=== PATIENT | female | born 1995 | race African-American/Black ===

== ENCOUNTER 2024-05-09 21:09 | Emergency (ER) | payer OTHER, MEDICAID, SELFPAY ==
[2024-05-09 21:29] VITALS: BP 109/79; PULSE 96; RESP 15; TEMP 36.6; O2SAT 99; BMI 18.3
--- NOTE | 2024-05-09 21:52 | ED.RECABL ---
HPI - Recheck/Abnormal Lab/Rx General Chief Complaint: Recheck/Abnormal Lab/Rx Stated Complaint: medication shot is broken, needs hlep Time Seen by Provider: 05/09/24 21:25 Source: patient Mode of arrival: Family Vehicle History of Present Illness HPI narrative: 29-year-old female with history of rheumatoid arthritis on Humira presents for generalized pain. Patient states that she was due for her Humira shot today, however the injector pens that she had at home broke, with a needle breaking off. She reports pain all over her body consistent with rheumatoid arthritis. She was hoping that the medication taken today would take effect for tomorrow, but since her inject her pins have broken and tomorrow as a Federal holiday she decided to present to the ER for help. Did not take any medications at home prior to arrival. Related Data Allergies Allergy/AdvReac Type Severity Reaction Status Date / Time sertraline [From Zoloft] AdvReac Anxiety Verified 05/09/24 21:35 Patient History Social History Smoking Status: Never smoker Smoking Status: Never smoker alcohol intake frequency: 0-2 drinks per day Substance Use Type: marijuana Exam Initial Vital Signs Initial Vital Signs: Vital Signs Temperature 97.9 F 05/09/24 21:29 Pulse Rate 96 H 05/09/24 21:29 Respiratory Rate 15 05/09/24 21:29 Blood Pressure 109/79 05/09/24 21:29 Pulse Oximetry 99 05/09/24 21:29 Oxygen Delivery Method Room Air 05/09/24 21:29 Const: Awake, alert, no acute distress, nontoxic appearing Cardiac: regular rate, regular rhythm RESP: unlabored, speaking in complete sentences without dyspnea MSK: Atraumatic, full range of motion, pulses equal Skin: Warm, Dry, intact, no rashes Neuro: AO x3, CN II-XII grossly intact, moves all extremities Course Orders Ordered: Discontinued Medications Dexamethasone (Dexamethasone 10 Mg/Ml Vial) 10 mg IV NOW ONE Stop: 05/09/24 22:00 Last Admin: 05/09/24 22:16 Dose: 10 mg Documented By: CHERELLE Acetaminophen (Ofirmev) 1,000 mg in 100 mls @ 400 mls/hr IV NOW ONE Stop: 05/09/24 22:13 Last Infusion: 05/09/24 22:45 Dose: Infused Documented By: Admin: 05/09/24 22:16 Dose: 400 mls/hr Documented By: CHERELLE Sodium Chloride (Normal Saline 0.9%) 1,000 mls @ 1,000 mls/hr IV BOLUS ONE Stop: 05/09/24 23:44 Last Infusion: 05/09/24 23:27 Dose: Infused Documented By: Admin: 05/09/24 22:45 Dose: 1,000 mls/hr Documented By: CHERELLE Ketorolac Tromethamine (Ketorolac 30 Mg/Ml Vial) 15 mg IV NOW ONE Stop: 05/09/24 22:00 Last Admin: 05/09/24 22:16 Dose: 15 mg Documented By: CHERELLE Vital Signs Vital signs: Vital Signs - 8 hr 05/09/24 21:29 05/09/24 21:57 05/09/24 22:00 Temperature 97.9 F Pulse Rate 96 H 86 78 Respiratory Rate 15 Blood Pressure 109/79 Pulse Oximetry 99 100 100 Oxygen Delivery Method Room Air 05/09/24 22:23 05/09/24 22:23 05/09/24 22:30 Temperature Pulse Rate 80 77 Respiratory Rate Blood Pressure 125/58 L Pulse Oximetry 100 100 Oxygen Delivery Method 05/09/24 22:30 05/09/24 23:00 05/09/24 23:00 Temperature Pulse Rate 66 Respiratory Rate 18 Blood Pressure 127/61 116/66 Pulse Oximetry 100 Oxygen Delivery Method MDM - Recheck/Abnormal Lab/Rx MDM Narrative Medical decision making narrative: Generalized pain consistent with the patient's rheumatoid arthritis. Patient states that normally her pen injection kicks in overnight, but since both of her pins are broken she can not administer her medications. No medications taken at home prior to arrival. Hemodynamically stable. Patient was given pain medications. She requested she be given a L of fluids, which were ordered. After receiving steroids, Tylenol, Toradol patient reported that she felt almost 100% better and that she was ready to leave. She will call the pharmacy either tomorrow or Friday for her medications. Discharge Plan Departure Patient Disposition: Home Clinical Impression: Rheumatoid arthritis flare Instructions: DI for Rheumatoid Arthritis Activity Restrictions/Additional Instructions: Follow up with your primary care doctor. Call the [facility] phone line for help with your prescription. Stand Alone Forms: Patient Portal/API
[2024-05-09 21:57] VITALS: PULSE 86; O2SAT 100
[2024-05-09 22:00] VITALS: PULSE 78; O2SAT 100
[2024-05-09] MEDS: ACETAMINOPHEN IV 1,000 MG/100 ML VIAL 400 MG IV (22:16)
[2024-05-09] MEDS: DEXAMETHASONE 10 MG/ML VIAL IV (22:16)
[2024-05-09] MEDS: KETOROLAC 30 MG/ML VIAL 15 MG IV (22:16)
[2024-05-09 22:23] VITALS: BP 125/58; PULSE 80; O2SAT 100
[2024-05-09 22:30] VITALS: BP 127/61; PULSE 77; O2SAT 100
[2024-05-09] MEDS: SODIUM CHLORIDE 0.9% 1,000 ML 1000 ML IV (22:45)
[2024-05-09 23:00] VITALS: BP 116/66; PULSE 66; RESP 18; O2SAT 100
== END 2024-05-09 23:28 | disposition home or self-care (01) ==
PROVIDERS: Emergency Provider Emergency Medicine
DX: M06.9 Rheumatoid arthritis, unspecified (principal)
CPT/HCPCS: 36415; 96361; 96365; 96375; 99284; J0136; J1100; J1885

== ENCOUNTER 2024-08-28 14:54 | Emergency (ER) | payer OTHER, SELFPAY ==
[2024-08-28 14:57] VITALS: BP 112/71; PULSE 100; RESP 18; TEMP 37.1; O2SAT 100; BMI 19.3
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
[2024-08-28] MEDS: ACETAMINOPHEN 325 MG TABLET 975 MG PO (16:02)
[2024-08-28 16:48] VITALS: BP 117/73; PULSE 90; RESP 16; O2SAT 97
== END 2024-08-28 16:57 | disposition home or self-care (01) ==
PROVIDERS: Emergency Provider Physician Assistant
DX: S16.1XXA Strain of muscle, fascia and tendon at neck level, initial encounter (principal); R51.9 Headache, unspecified; V49.40XA Driver injured in collision with unspecified motor vehicles in traffic accident, initial encounter
CPT/HCPCS: 72125; 99283; 99284